=== PATIENT | female | born 1945 | race Caucasian/White ===

== ENCOUNTER 2017-05-09 21:48 | Inpatient (IN) | payer MEDICARE ==
[~2017-05-09] VITALS: Ht 157.5 cm; Wt 87.2 kg
[2017-05-09 00:35] VITALS: BP 207/124
[2017-05-09] MEDS ORDERED: SODIUM CHLORIDE FLUSH 10ML SYR IVF ONE (22:00)
[2017-05-09 22:23] LABS: BLOOD UREA NITROGEN 58 mg/dL (7-18)
[2017-05-09 22:26] LABS: IS PT STATUS REG ER OR PRE ER? YES
[2017-05-09] MEDS ORDERED: SODIUM CHLORIDE 0.9% 1,000 ML IV SCH (23:45)
[2017-05-10] VITALS (12 sets, daily range): BP systolic 125–240; BP diastolic 58–109
[2017-05-10] MEDS ORDERED: ONDANSETRON 2MG/ML, 2ML IVPush PRN
[2017-05-10] MEDS ORDERED: morphine SULFATE 10 MG/ML, 1ML IVPush PRN
[2017-05-10] MEDS ORDERED: DOCUSATE 100 MG CAPSULE PO PRN
[2017-05-10] MEDS ORDERED: NITROGLYCERIN 0.4 MG BOTTLE (25 TABS) SL PRN
[2017-05-10 00:57] LABS: IS PT STATUS REG ER OR PRE ER? YES
[2017-05-10] MEDS: LABETALOL 5MG/ML, 20ML IVPush PRN ×2 (02:24→16:28)
[2017-05-10 06:38] LABS: BLOOD UREA NITROGEN 51 mg/dL (7-18)
[2017-05-10 06:45] LABS: IS PT STATUS REG ER OR PRE ER? NO
[2017-05-10] MEDS ORDERED: hydrALAzine 20 MG/ML, 1ML ONE (08:07)
[2017-05-10] MEDS: hydrALAzine 20 MG/ML, 1ML IV PRN ×2 (08:12→12:37)
[2017-05-10] MEDS ORDERED: HEPARIN 5,000 UNITS/ML, 1ML IV PRN (08:30)
[2017-05-10] MEDS ORDERED: HEPARIN 25,000 UNITS/500ML PMX 500 ML IV PRN (08:30)
[2017-05-10] MEDS ORDERED: HEPARIN 5,000 UNITS/ML, 1ML IV ONE ×2 (08:30→19:30)
[2017-05-10] MEDS: ENALAPRILAT 1.25 MG/ML, 2ML IV PRN ×2 (09:05→20:38)
[2017-05-10] MEDS ORDERED: PRIM50TA34 PO (09:36)
[2017-05-10] MEDS ORDERED: AMLO10TA4 PO (09:37)
[2017-05-10] MEDS ORDERED: INSU100V8 SQ (09:38)
[2017-05-10] MEDS ORDERED: CLON0.2T10 PO (09:39)
[2017-05-10] MEDS ORDERED: FURO40TA6 PO (09:39)
[2017-05-10] MEDS ORDERED: LISI40TA PO (09:40)
[2017-05-10] MEDS ORDERED: ATOR20TA PO (09:40)
[2017-05-10] MEDS ORDERED: INSULIN GLARGINE HUM REC ANLOG 22 UNIT SQ SCH (10:00)
[2017-05-10] MEDS: PRIMIDONE 50 MG TABLET PO SCH ×2 (11:05→20:37)
[2017-05-10] MEDS: LISINOPRIL 20 MG TABLET PO SCH (11:05)
[2017-05-10] MEDS: AMLODIPINE 5 MG TABLET PO SCH (11:06)
[2017-05-10] MEDS ORDERED: SODIUM CHLORIDE 0.9% 1,000 ML IV SCH (17:17)
[2017-05-10] MEDS ORDERED: HEPARIN 25,000 UNITS/500ML PMX 500 ML ONE (18:27)
[2017-05-10] MEDS: HEPARIN 25,000 UNITS/500ML PMX 500 ML IV PRN (18:45)
[2017-05-10] MEDS: ATORVASTATIN 20 MG TABLET PO SCH (20:38)
[2017-05-10] MEDS ORDERED: INSULIN DETEMIR 100 UNITS/ML, PEN SQ-INSULIN SCH (21:00)
[2017-05-11] VITALS (7 sets, daily range): BP systolic 137–198; BP diastolic 68–96
[2017-05-11] MEDS: PRIMIDONE 50 MG TABLET PO SCH ×2 (07:28→21:12)
[2017-05-11] MEDS: LISINOPRIL 20 MG TABLET PO SCH ×3 (07:28→21:13)
[2017-05-11] MEDS: AMLODIPINE 5 MG TABLET PO SCH ×3 (07:29→21:13)
[2017-05-11 07:33] LABS: BLOOD UREA NITROGEN 50 mg/dL (7-18)
[2017-05-11] MEDS: ACETAMINOPHEN 325 MG TABLET PO PRN (08:18)
[2017-05-11] MEDS: HEPARIN 5,000 UNITS/ML, 1ML IV PRN ×2 (08:18→14:54)
[2017-05-11] MEDS: HEPARIN 25,000 UNITS/500ML PMX 500 ML IV PRN (16:32)
[2017-05-11] MEDS: ATORVASTATIN 20 MG TABLET PO SCH (21:13)
[2017-05-12 01:39] VITALS: BP 156/84
[2017-05-12 03:36] LABS: BLOOD UREA NITROGEN 57 mg/dL (7-18)
[2017-05-12 08:06] VITALS: BP 188/83
[2017-05-12] MEDS: PRIMIDONE 50 MG TABLET PO SCH ×2 (08:30→19:47)
[2017-05-12] MEDS: AMLODIPINE 5 MG TABLET PO SCH ×2 (08:30→19:47)
[2017-05-12] MEDS: LISINOPRIL 20 MG TABLET PO SCH ×2 (08:30→19:45)
[2017-05-12 10:42] VITALS: BP 154/65
[2017-05-12 13:05] VITALS: BP 171/73
[2017-05-12] MEDS: HEPARIN 25,000 UNITS/500ML PMX 500 ML IV PRN (13:52)
[2017-05-12] MEDS: LABETALOL 100 MG TABLET PO SCH ×2 (17:43→18:49)
[2017-05-12 17:44] VITALS: BP 187/89
[2017-05-12 19:33] VITALS: BP 167/91
[2017-05-12] MEDS: ATORVASTATIN 20 MG TABLET PO SCH (19:45)
[2017-05-12] MEDS ORDERED: POLYETHYLENE GLYCOL 17 GM PACKET PO ONE (21:30)
[2017-05-13] VITALS (7 sets, daily range): BP systolic 152–208; BP diastolic 71–88
[2017-05-13] MEDS: ENALAPRILAT 1.25 MG/ML, 2ML IV PRN (01:24)
[2017-05-13] MEDS: hydrALAzine 20 MG/ML, 1ML IV PRN ×2 (02:46→12:06)
[2017-05-13] MEDS: LABETALOL 5MG/ML, 20ML IVPush PRN (03:57)
[2017-05-13] MEDS: LABETALOL 100 MG TABLET PO SCH ×3 (08:00→20:02)
[2017-05-13] MEDS ORDERED: REGADENOSON 0.4 MG/5 ML SYRINGE ONE (08:15)
[2017-05-13] MEDS: PRIMIDONE 50 MG TABLET PO SCH ×2 (11:29→20:01)
[2017-05-13] MEDS: AMLODIPINE 5 MG TABLET PO SCH ×2 (11:30→20:02)
[2017-05-13] MEDS: LISINOPRIL 20 MG TABLET PO SCH ×2 (11:30→20:01)
[2017-05-13] MEDS: HEPARIN 25,000 UNITS/500ML PMX 500 ML IV PRN (11:51)
[2017-05-13] MEDS ORDERED: WARFARIN HIGH DOSE PROTOCOL XX PRN (14:00)
[2017-05-13] MEDS: ACETAMINOPHEN 325 MG TABLET PO PRN (16:28)
[2017-05-13] MEDS ORDERED: WARFARIN 5 MG TABLET PO-COUM ONE (18:00)
[2017-05-13] MEDS: ATORVASTATIN 20 MG TABLET PO SCH (20:02)
[2017-05-14] VITALS (7 sets, daily range): BP systolic 117–199; BP diastolic 79–99
[2017-05-14] MEDS: LABETALOL 100 MG TABLET PO SCH ×3 (02:59→22:38)
[2017-05-14] MEDS: hydrALAzine 20 MG/ML, 1ML IV PRN (03:35)
[2017-05-14] MEDS: ACETAMINOPHEN 325 MG TABLET PO PRN (09:02)
[2017-05-14] MEDS: HEPARIN 25,000 UNITS/500ML PMX 500 ML IV PRN (09:02)
[2017-05-14] MEDS: LISINOPRIL 20 MG TABLET PO SCH ×2 (09:07→22:38)
[2017-05-14] MEDS: AMLODIPINE 5 MG TABLET PO SCH ×2 (09:07→22:39)
[2017-05-14] MEDS: PRIMIDONE 50 MG TABLET PO SCH ×2 (09:07→22:37)
[2017-05-14] MEDS ORDERED: WARFARIN 5 MG TABLET PO-COUM ONE (18:00)
[2017-05-14] MEDS: ATORVASTATIN 20 MG TABLET PO SCH (22:39)
[2017-05-15 02:55] VITALS: BP 143/81
[2017-05-15 05:44] LABS: BLOOD UREA NITROGEN 46 mg/dL (7-18)
[2017-05-15] MEDS: HEPARIN 5,000 UNITS/ML, 1ML IV PRN (06:35)
[2017-05-15] MEDS: HEPARIN 25,000 UNITS/500ML PMX 500 ML IV PRN (06:36)
[2017-05-15] MEDS: AMLODIPINE 5 MG TABLET PO SCH (08:09)
[2017-05-15] MEDS: LISINOPRIL 20 MG TABLET PO SCH (08:09)
[2017-05-15] MEDS: PRIMIDONE 50 MG TABLET PO SCH (08:09)
[2017-05-15] MEDS: LABETALOL 100 MG TABLET PO SCH (08:09)
[2017-05-15 08:10] VITALS: BP 184/94
[2017-05-15 12:17] VITALS: BP 137/85
[2017-05-15] MEDS ORDERED: LISI-170 PO (14:31)
[2017-05-15] MEDS ORDERED: HYDR-3342 PO (14:31)
[2017-05-15] MEDS ORDERED: AMLO5TAB2 PO (14:31)
[2017-05-15] MEDS ORDERED: ENOX80SY5 SQ (14:31)
[2017-05-15] MEDS ORDERED: LABE100T3 PO (14:31)
[2017-05-15] MEDS ORDERED: WARF5TAB PO-COUM (14:31)
[2017-05-15] MEDS ORDERED: WARFARIN 5 MG TABLET PO-COUM SCH (18:00)
== END 2017-05-15 18:15 | disposition home or self-care (01) | DRG 280 ==
LOC: ED 22:40 → 5SO 23:45 → DCLOUNGE 05-15 16:45
PROVIDERS: ADMIT Internal Medicine; ATTEND Internal Medicine
DX: I21.4 Non-ST elevation (NSTEMI) myocardial infarction (principal); I26.99 Other pulmonary embolism without acute cor pulmonale; J96.00 Acute respiratory failure, unspecified whether with hypoxia or hypercapnia; I16.9 Hypertensive crisis, unspecified; I82.402 Acute embolism and thrombosis of unspecified deep veins of left lower extremity; E11.21 Type 2 diabetes mellitus with diabetic nephropathy; E11.22 Type 2 diabetes mellitus with diabetic chronic kidney disease; I13.10 Hypertensive heart and chronic kidney disease without heart failure, with stage 1 through stage 4 chronic kidney disease, or unspecified chronic kidney disease; I16.0 Hypertensive urgency; E66.9 Obesity, unspecified; Z68.35 Body mass index [BMI] 35.0-35.9, adult; E78.00 Pure hypercholesterolemia, unspecified; E78.5 Hyperlipidemia, unspecified; G47.33 Obstructive sleep apnea (adult) (pediatric); E11.42 Type 2 diabetes mellitus with diabetic polyneuropathy; N18.2 Chronic kidney disease, stage 2 (mild); Z82.49 Family history of ischemic heart disease and other diseases of the circulatory system; Z87.891 Personal history of nicotine dependence; R00.1 Bradycardia, unspecified
CPT/HCPCS: 36415; 71010; 78452; 78582; 80048; 80061; 82040; 82962; 83735; 84100; 84439; 84443; 84484; 85025; 85520; 85610; 85730; 93005; 93017; 93306; 93880; 93970; 99285; J1644; J2785; A9502; A9540; A9558; C9898; J0360; J7030

== ENCOUNTER → 2019-03-12 | Outpatient (CLI) | payer MEDICARE ==
[~2019-03-12] MED LIST: AMLO-150 PO; AMLO10TA4 PO; ATOR20TA PO; CLON0.2T10 PO; ENOX80SY5 SQ; FURO40TA6 PO; HYDR-3342 PO; INSU100V8 SQ; LABE100T6 PO; LISI-170 PO; LISI40TA PO; PRIM50TA34 PO; WARF5TAB PO-COUM
== END | disposition home or self-care (01) ==
LOC: CVU 13:42
PROVIDERS: ATTEND Internal Medicine Cardiovascular Disease
DX: I35.1 Nonrheumatic aortic (valve) insufficiency (principal); I10 Essential (primary) hypertension; E78.5 Hyperlipidemia, unspecified; E11.9 Type 2 diabetes mellitus without complications
CPT/HCPCS: 0399T; 93306

== ENCOUNTER → 2020-12-01 | Outpatient (CLI) | payer MEDICARE ==
[~2020-12-01] MED LIST changes: +DOXA8TAB63 PO; +FURO20TA3 PO; +HYDR100T25 PO; -LISI40TA PO; +LISI40TA9 PO; -WARF5TAB PO-COUM; +WARF5TAB2 PO-COUM
== END | disposition home or self-care (01) ==
LOC: CFH 12:48
PROVIDERS: ATTEND Registered Nurse
DX: D16.4 Benign neoplasm of bones of skull and face (principal); G25.0 Essential tremor; R90.89 Other abnormal findings on diagnostic imaging of central nervous system
CPT/HCPCS: 70450